=== PATIENT | male | born 1980 | race Hispanic/Latino ===

== ENCOUNTER 2021-08-29 19:06 | Emergency (ER) | payer MEDICAID ==
[~2021-08-29] VITALS: Ht 172.7 cm; Wt 104.3 kg
[2021-08-29] MEDS ORDERED: KETOROLAC 60 MG VIAL (30MG/ML) IM ONE (20:00)
[2021-08-29] MEDS ORDERED: ORPHENADRINE CITRATE 30 MG/ML ML IM ONE (20:00)
[2021-08-29] MEDS ORDERED: NAPR-1180 PO (21:16)
[2021-08-29] MEDS ORDERED: CYCL-309 PO (21:16)
[2021-08-29 21:35] VITALS: BP 132/80
== END 2021-08-29 21:36 | disposition home or self-care (01) ==
LOC: EDH 19:06
DX: M54.50 Low back pain, unspecified (principal); I10 Essential (primary) hypertension; E66.9 Obesity, unspecified; Z68.35 Body mass index [BMI] 35.0-35.9, adult; Z79.1 Long term (current) use of non-steroidal anti-inflammatories (NSAID)
CPT/HCPCS: 96372 ×2; 99284; J1885; J2360

== ENCOUNTER 2021-11-20 09:55 | Emergency (ER) | payer MEDICAID ==
[~2021-11-20] VITALS: Ht 172.7 cm; Wt 102.1 kg
[~2021-11-20 09:55] MED LIST: CYCL-309 PO; NAPR-1180 PO
[2021-11-20] MEDS ORDERED: KETOROLAC 60 MG VIAL (30MG/ML) IM ONE (11:30)
[2021-11-20] MEDS ORDERED: HYDROCODONE/ACETAMINOPHEN 10/325 MG TAB PO ONE (11:30)
[2021-11-20] MEDS ORDERED: DICL50TA9 PO (11:43)
[2021-11-20 11:44] VITALS: BP 123/52
== END 2021-11-20 11:54 | disposition home or self-care (01) ==
LOC: EDH 09:55
DX: M70.61 Trochanteric bursitis, right hip (principal); Z79.1 Long term (current) use of non-steroidal anti-inflammatories (NSAID)
CPT/HCPCS: 96372; 99283; J1885